=== PATIENT | female | born 1960 | race Caucasian/White ===

== ENCOUNTER 2018-09-02 16:08 | Emergency (ER) | payer MEDICAID ==
[~2018-09-02] VITALS: Ht 152.4 cm; Wt 76.2 kg
[2018-09-02 16:30] VITALS: Ht 152.4 cm; Wt 76.2 kg
[2018-09-02 17:14] LABS: BASOPHIL % 0.5 % (0-2); PLATELET COUNT 293 x10^3mcL (130-400); RED CELL DISTRIBUTION WIDTH 14.2 % (11.5-14.5)
[2018-09-02 17:44] LABS: CALCIUM 9.8 mg/dL (8.5-10.1); CARBON DIOXIDE 21.6 mmol/L (21-32); POTASSIUM SERUM 3.7 mmol/L (3.5-5.1)
[2018-09-02 17:49] LABS: ALBUMIN 4.1 g/dL (3.4-5.0); BILIRUBIN TOTAL 0.52 mg/dL (0.20-1.00)
[2018-09-02 17:54] LABS: TOTAL PROTEIN, SERUM 8.3 g/dL (6.4-8.2)
[2018-09-02 18:08] LABS: microscopic required? YES; urine erythrocyte 1+ (NEGATIVE)
[2018-09-02 19:14] VITALS: BP 118/66
== END 2018-09-02 19:14 | disposition home or self-care (01) ==
LOC: ED 16:08
PROVIDERS: Emergency Medicine
DX: N39.0 Urinary tract infection, site not specified (principal); E86.0 Dehydration; I10 Essential (primary) hypertension
CPT/HCPCS: J7030; Q0092

== ENCOUNTER 2019-03-10 17:04 | Emergency (ER) | payer MEDICAID ==
[~2019-03-10] VITALS: Ht 152.4 cm; Wt 76.2 kg
[2019-03-10 17:21] VITALS: Ht 152.4 cm; Wt 76.2 kg
[2019-03-10 19:22] VITALS: BP 140/101
== END 2019-03-10 19:22 | disposition home or self-care (01) ==
LOC: ED 17:04
DX: I10 Essential (primary) hypertension (principal); R51 Headache
CPT/HCPCS: J2765

== ENCOUNTER 2020-09-11 13:07 | Emergency (ER) | payer MEDICAID ==
[~2020-09-11] VITALS: Ht 152.4 cm; Wt 75.3 kg
[2020-09-11 13:49] VITALS: Ht 152.4 cm; Wt 75.3 kg
[2020-09-11 17:56] VITALS: BP 132/82
== END 2020-09-11 17:50 | disposition home or self-care (01) ==
LOC: ED 13:07
DX: M19.90 Unspecified osteoarthritis, unspecified site (principal); M25.50 Pain in unspecified joint; I10 Essential (primary) hypertension; Z98.890 Other specified postprocedural states
CPT/HCPCS: J1885

== ENCOUNTER 2021-01-21 18:15 | Emergency (ER) | payer MEDICAID ==
[~2021-01-21] VITALS: Ht 154.9 cm; Wt 73.9 kg
[2021-01-21 18:26] VITALS: Ht 154.9 cm; Wt 73.9 kg
[2021-01-21] MEDS ORDERED: ULTRAM50 MG PO (19:06)
[2021-01-21 19:42] VITALS: BP 110/71
== END 2021-01-21 19:42 | disposition home or self-care (01) ==
LOC: ED 18:15
DX: S06.0X0A Concussion without loss of consciousness, initial encounter (principal); I10 Essential (primary) hypertension; W17.89XA Other fall from one level to another, initial encounter; Y93.89 Activity, other specified; Y92.89 Other specified places as the place of occurrence of the external cause; Y99.8 Other external cause status